=== PATIENT | male | born 1980 | race Two or more races ===

== ENCOUNTER → 2024-09-12 | Outpatient (CLI) | payer BC, SELFPAY ==
--- NOTE | 2024-09-12 16:00 | XR_ITS ---
Examination: Abdomen sonogram, Limited Date and time of exam: September 12, 2024 1557 hours INDICATIONS: Elevated transaminase laboratory values on examination one month ago Technique: Real-time saeed scale transabdominal sonographic images of the upper abdomen obtained. Findings: Normal gallbladder Normal common bile duct 0.3 cm Pancreatic head 3.3 cm Liver 14.7 cm fatty infiltration no focal liver lesions Normal hepatopedal portal venous flow Patent IVC IMPRESSION: Normal gallbladder Fatty liver
== END | disposition home or self-care (01) ==
LOC: CDIM 15:35
PROVIDERS: PCP Student in an Organized Health Care Education/Training Program; Referring Provider Student in an Organized Health Care Education/Training Program; Visit Provider Student in an Organized Health Care Education/Training Program
DX: K76.0 Fatty (change of) liver, not elsewhere classified (principal)
CPT/HCPCS: 76705